=== PATIENT | female | born 1975 | race Caucasian/White ===

== ENCOUNTER 2022-04-01 06:24 | Emergency (ER) | payer MEDICAID, SELFPAY ==
[2022-04-01 06:25] VITALS: BP 131/104; PULSE 129; RESP 20; TEMP 36.9; O2SAT 99; BMI 32.5
--- NOTE | 2022-04-01 06:30 | CTR_ITS ---
PROCEDURE INFORMATION: Exam: CT Head Without Contrast Exam date and time: 04/01/2022 6:28 AM Age: 47 years old Clinical indication: Stroke-like symptoms; Additional info: Symptoms of acute stroke. Left sided facial droop, AMS, slurred speech TECHNIQUE: Imaging protocol: Computed tomography of the head without contrast. Total images: 471 Radiation optimization: All CT scans at this facility use at least one of these dose optimization techniques: automated exposure control; mA and/or kV adjustment per patient size (includes targeted exams where dose is matched to clinical indication); or iterative reconstruction. Other technique: STROKE PROTOCOL was implemented. COMPARISON: No relevant prior studies available. RADIATION DOSE METRICS: Total DLP (mGy-cm): 1900.36 FINDINGS: Brain: Normal. No hemorrhage. Unremarkable white matter. No mass effect. Cerebral ventricles: No ventriculomegaly. Paranasal sinuses: Visualized sinuses are unremarkable. No fluid levels. Mastoid air cells: Visualized mastoid air cells are well aerated. Bones/joints: Unremarkable. No acute fracture. Soft tissues: Unremarkable. CT/CT head wo con* [id number] IMPRESSION: No acute intracranial abnormality. ASSESSMENT: ASPECTS ([place] Stroke Program Early CT Score) is 10.
--- NOTE | 2022-04-01 06:31 | CTR_ITS ---
PROCEDURE INFORMATION: Exam: CTA Head With Contrast, Arteriography Exam date and time: 04/01/2022 6:34 AM Age: 47 years old Clinical indication: Stroke-like symptoms; Additional info: Symptoms of acute stroke TECHNIQUE: Imaging protocol: Computed tomographic angiography of the head with contrast. Exam focused on the arteries. 3D rendering (Not supervised by radiologist): MIP and/or 3D reconstructed images were created by the technologist. Total images: 438 Radiation optimization: All CT scans at this facility use at least one of these dose optimization techniques: automated exposure control; mA and/or kV adjustment per patient size (includes targeted exams where dose is matched to clinical indication); or iterative reconstruction. Contrast material: OMNI 350; Contrast volume: 95 ml; Contrast route: INTRAVENOUS (IV); COMPARISON: CT head wo con* [id number] 04/01/2022 6:28 AM RADIATION DOSE METRICS: Total DLP (mGy-cm): 1232.37 FINDINGS: ANTERIOR CIRCULATION: Right internal carotid artery: Unremarkable. Intracranial segment is patent with no significant stenosis. No aneurysm. Right middle cerebral artery: Unremarkable. No occlusion or significant stenosis. No aneurysm. Right anterior cerebral artery: Unremarkable. No occlusion or significant stenosis. No aneurysm. Left internal carotid artery: Unremarkable. Intracranial segment is patent with no significant stenosis. No aneurysm. Left middle cerebral artery: Unremarkable. No occlusion or significant stenosis. No aneurysm. Left anterior cerebral artery: Unremarkable. No occlusion or significant stenosis. No aneurysm. POSTERIOR CIRCULATION: Right vertebral artery: Unremarkable. No occlusion or significant stenosis. No aneurysm. Left vertebral artery: Unremarkable. No occlusion or significant stenosis. No aneurysm. Basilar artery: Occluded distal basilar artery and proximal P1 segment of right SCIENTIFIC AIDE. In hind site patient has hyperdensity in this area on prior CT scan without contrast suggesting thromboembolic disease. Right posterior cerebral artery: See Basilar artery finding. Left posterior cerebral artery: Unremarkable. No occlusion or significant stenosis. No aneurysm. Brain: No definite mass, mass effect, or midline shift. Cerebral ventricles: No ventriculomegaly. Bones/joints: Unremarkable. No acute fracture. Soft tissues: Unremarkable. PROCEDURE INFORMATION: Exam: CTA Neck With Contrast Exam date and time: 04/01/2022 6:34 AM Age: 47 years old Clinical indication: Stroke-like symptoms; Additional info: Symptoms of acute stroke TECHNIQUE: Imaging protocol: Computed tomographic angiography of the neck with contrast. 3D rendering (Not supervised by radiologist): MIP and/or 3D reconstructed images were created by the technologist. Radiation optimization: All CT scans at this facility use at least one of these dose optimization techniques: automated exposure control; mA and/or kV adjustment per patient size (includes targeted exams where dose is matched to clinical indication); or iterative reconstruction. Contrast material: OMNI 350; Contrast volume: 95 ml; Contrast route: INTRAVENOUS (IV); COMPARISON: CT head wo con* [id number] 04/01/2022 6:28 AM RADIATION DOSE METRICS: Total DLP (mGy-cm): 1232.37 FINDINGS: Right common carotid artery: No stenosis. No dissection or occlusion. Right internal carotid artery: No stenosis of the extracranial segment. No dissection or occlusion. Right external carotid artery: No occlusion or stenosis of the origin. Left common carotid artery: No stenosis. No dissection or occlusion. Left internal carotid artery: No stenosis of the extracranial segment. No dissection or occlusion. Left external carotid artery: No occlusion or stenosis of the origin. Right vertebral artery: No stenosis. No dissection or occlusion. Left vertebral artery: Findings suspicious of clot within the proximal left vertebral artery partially occluding as reconstitution of flow is seen at the C6 transverse foramina. Left vertebral artery dominant. Soft tissues: Normal. No significant soft tissue swelling. Bones/joints: No acute fracture. CT/CT angio headneck* [id number] IMPRESSION: Occluded distal basilar artery and proximal P1 segment of right SCIENTIFIC AIDE. In hind site patient has hyperdensity in this area on prior CT scan without contrast suggesting thromboembolic disease. IMPRESSION: Findings suspicious of clot within the proximal left vertebral artery partially occluding as reconstitution of flow is seen at the C6 transverse foramina. REFERENCES: NASCET CRITERIA. The degree of internal carotid artery stenosis is based on NASCET criteria. Normal is no stenosis. Mild is less than 50% stenosis. Moderate is 50-69% stenosis. Severe is 70% to 99% stenosis. Total occlusion is no detectable patent lumen.
--- NOTE | 2022-04-01 06:33 | ECG_ITS ---
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 Measurements Intervals [place] Rate: 134 P: 63 WA: 135 QRS: 64 QRSD: 89 T: 47 QT: 322 QTc: 481 Interpretive Statements SINUS TACHYCARDIA NONSPECIFIC ST & T-WAVE ABNORMALITY ABNORMAL RHYTHM ECG No previous ECG available for comparison Electronically Signed On 04-01-2022 22:19:49 CDT by Elma Leiva M.D. [id number]
[2022-04-01] MEDS: iohexol 350 mg/mL 100 mL Btl IV (06:49)
[2022-04-01] MEDS: LORazepam 2 mg/mL INJ 1 mL (06:50)
[2022-04-01 06:51] LABS: Basophils # 0.2 10^3/uL (0.0-0.1); Basophils % 0.9 %; Eosinophils # 0.5 10^3/uL (0.0-0.8); Eosinophils % 2.6 %; Hematocrit 26.6 % (37.0-47.0); Hemoglobin 7.1 g/dL (11.5-15.3); Lymphocytes # 5.4 10^3/uL (0.8-4.8); Lymphocytes % 30.2 %; Mean Corpuscular HGB Conc 26.7 g/dL (30.0-36.0); Mean Corpuscular Volume 63.8 fl (81-99); Monocytes # 0.9 10^3/uL (0.2-0.9); Monocytes % 4.8 %; Neutrophils # 10.97 10^3/uL (1.8-7.7); Neutrophils % 61.1 %; Nucleated Red Blood Cells % 0 %; Platelet Count 609 10^3/cmm (130-400); Red Blood Count 4.17 10^6/uL (4.1-5.3); Red Cell Distribution Width 20.2 % (12.1-15.1)
[2022-04-01 07:04] VITALS: RESP 14
[2022-04-01 07:05] LABS: INR 1.04 (0.8-1.2)
[2022-04-01 07:06] LABS: Partial Thromboplastin Time 22.1 SECONDS (23.9-36.7)
[2022-04-01 07:10] LABS: ABG PCO2 41.3 mmHg (35-45); Alveolar-Arterial Oxygen Gradi 46.2 mmHg (5-10); Arterial Blood Gas Hematocrit 21.9 % (37-47); Base Excess ABG -12.3 mmol/L (-2.0-2.0); Blood Gas Sample Site Brachial, left; Blood Gas Sample Type Arterial; Carboxyhemoglobin 2.1 %THgb (0.4-20.1); HCO3 ABG 15.2 mmol/L (22-26); HGB O2 Sat 97.9 % (95-100); Ionized Calcium Level - ABG 1.2 mmol/L (1.1-1.4); Methemoglobin 0.7 % (0.4-1.5); Oxygen Device AMBU; Oxygen Saturation ABG > 100.0; Potassium Level - ABG 3.8 mmol/L (3.5-5.0); Total Hemoglobin 7.2 g/dL (12-16)
[2022-04-01 07:15] LABS: ABG PH Result 7.17 (7.35-7.45)
[2022-04-01 07:15] LABS: Alanine Aminotransferase 7 U/L (0-33); Albumin Level 3.9 g/dL (3.5-5.2); Alkaline Phosphatase 87 IU/L (35-105); Aspartate Amino Transferase 14 U/L (0-32); Blood Urea Nitrogen 13 mg/dL (6-20); Chloride 104 mmol/L (98-107); Globulin 3.5 g/dL (1.3-4.6); Osmolality Calculated 285 mOsm/kg (285-295); Potassium 3.9 mmol/L (3.5-5.1); Total Bilirubin 0.3 mg/dL (0.15-1.2); Total Protein 7.4 g/dL (6.6-8.7)
[2022-04-01] MEDS: midazolam 1 mg/mL INJ 2 mL 5 MG IVP (07:15)
--- NOTE | 2022-04-01 07:16 | ED_ITS ---
HPI - Neuro Symptoms/Deficit General: Chief Complaint: Neuro Symptoms/Deficit Stated Complaint: STROKE Time Seen by Provider: 04/01/22 06:32 History of Present Illness: 47-year-old female brought in by EMS. Initially we were given a EMS report of a last known well at around 10 30-11 30 last night. In the report was that she woke up with right-sided facial weakness and arm weakness. She is having difficulty with breathing. EMS had called in with a time report initially at around change of shift and talk to Dr. Charlie Guerra told him to proceed directly to the CT for evaluation. I arrived in the CT scanner brief exam would put her NIH score at that time in the 16-20 range however she was difficult to examine because of the severity of her deficits. Patient returned to the trauma bay after she had CT head and CTA head and neck at that time she began seizing was intermittently hypoxic and was not controlling her airway. She was given Ativan and Versed and then intubated by RSI. Patient was given a gram of Keppra and started on a Versed drip supplemented with fentanyl. At that time the family arrived and gave a different history history per the family was that they had seen her at around 4 AM she gotten up going to the bathroom without any difficulty and then woke up sometime around 530 was normal was up talking to several different family members drinking coffee even joking with 1 family member and then shortly before 6:00am was found to be nonresponsive sitting on a couch with the right-sided facial weakness. They called EMS around that time. See notes below and medical decision making. Patient has no known history of diabetes or stroke. Int erestingly she has been having progressively worsening headaches for the last week. No recent surgeries or head injury per the family. No bleeding issues recently. Onset (ago): minute(s) Location: speech, right face, dysarthria, right arm, right leg, ataxia and altered History of same: No Severity: severe Quality: weak Relieving factors: none Exacerbating factors: none Context: sudden onset Associated symptoms: Reports headache(s), seizures and weakness; Deny chest pain, cough, fevers/chills, anorexia, malaise, nausea, short of breath, syncope, tingling, vertigo or vomiting (No vomiting prior to the episode this morning) Treatments Prior to Arrival: none Review of Systems General: Reports: Other (Minimal review of systems. Obtained via family discussion) Const: Denies: fever(s), chills, body aches, change in appetite, fatigue or malaise ENMT: Denies: throat pain, ear or mastoid pain, nasal discharge or nasal congestion Card: Denies: chest pain or syncope Resp: Denies: dyspnea GI: Denies: abdominal pain, nausea or vomiting (No vomiting prior to the episode this morning) : Denies: flank pain, difficulty voiding, dysuria, urinary frequency or uri nary urgency Skin/Breast: Denies: rash or pruritus Neuro: Reports: headache(s); Denies: vertigo PFSH ED PFSH: Medical History Migraines Social History Smoking and tobacco status: current every day smoker Alcohol intake: current Supplemental PFSH Information: due to endotracheal tube NIH stroke score NIHSS: Level Of Consciousness - 1a: 3 Level Of Consciousness Questions - 1b: Neither Correct Level Of Consciousness Commands - 1c: Neither Correct Best Gaze - 2: Forced Deviation Visual Perez - 3: No Visual Loss Facial Palsy - 4: Partial Paralysis Motor Arm Right - 5: No Drift Motor Arm Left - 5: No Drift Motor Leg Right - 6: No Drift Motor Leg Left - 6: No Drift Limb Ataxia - 7: Absent Sensory - 8: Normal Best Language - 9: Mild/Moderate Aphasia Dysarthia - 10: Severe Dysarthia Extinction And Inattention - 11: 2 Score: Total Score: 16 Physical Exam HENMT: COMMON NORMALS: normocephalic and atraumatic HEAD & SCALP: n ormocephalic and atraumatic Neck/C-Spine: COMMON NORMALS: full ROM, no lymphadenopathy, supple and no JVD Resp: COMMON NORMALS: normal respiratory effort, No retractions, No use of accessory muscles and clear to auscultation bilaterally AUSCULTATION: clear to auscultation bilaterally Cardio: COMMON NORMALS: no JVD, regular rhythm and No murmurs present (Cardio) RATE: tachycardic RHYTHM: regular rhythm GI: COMMON NORMALS: Soft to palpation and No hepatosplenomegaly present AUSCULTATION: Yes normoactive bowel sounds PALPATION: Yes Soft to palpation, No Tenderness to palpation present (GI), No Guarding due to palpation present (GI) and Yes No hepatosplenomegaly present Extremity: COMMON NORMALS: normal to inspection, capillary refill normal, no clubbing, cyanosis or edema, no calf tenderness and no pedal edema Neuro: OTHER: Witnessed seizure activity see stroke score Skin: COMMON NORMALS: no rashes or lesions noted GENERAL SKIN EXAM: no rashes or lesions noted Procedures Intubation Time out performed: Yes sedative: Etomidate paralytic: Succinylcholine Laryngoscope: fiber optic video scope Assist Device Used: fiber optic device ET Tube Size: 8 ET Tube Uncuffed: No Tube Secured Depth (cm): 21 Tube Placement Confirmation: visualized tube passing through cords, equal breath sounds bilaterally, no breath sounds over epigastrium and confirmation by cap nometry Patient Tolerated Procedure: well Intubation Complications: none Additional Comments: Initial RSI medications I believe infiltrated in the IV that was being used in the left shoulder as she had very poor response to them. She was redosed with succinylcholine and Versed in the right IV and had quick response. She was then successfully intubated without any complications. Course Vital Signs: Vital signs: Vital Signs Temperature 98.5 F 04/01/22 06:25 Pulse Rate 129 H 04/01/22 06:25 Respiratory Rate 14 04/01/22 07:04 Blood Pressure 131/104 04/01/22 06:25 Pulse Oximetry 99 04/01/22 06:25 MDM - Neuro Symptoms/Deficit Medical Decision Making After family arrived I was found by history that they could confirm a much closer last known well time she was well within the time for treatment. We immediately consented for tPA which they agreed to after some discussion with several family members all questions that they asked were answered they wish to go ahead. I also called and talked to Dr. Hines I talked to her earlier and when we were unaware of the actual last known well time and we had decided that she was not a tPA candidate. Given this new information placed her last known well around 545 she was a candidate now. I think she would definitely benefit family consented tPA was started. She is also found to be significantly anemic with a hemoglobin of 7 1 her MCV was 63.8 in talking to the family is no recent history suggestive of a new bleed. They had also told me she had not had any traumas or surgeries recently. We Ar[place] to transfuse her 1 unit of blood. She is transferred via air ambulance to [facility] for possible thrombectomy. tPA has infused blood is being started she has not shown any signs of seizure since being intubated she is on Versed and fentanyl for sedation and she has received Keppra. Dr. Hines did come to the emergency room and see the patient and talk to the family as well she concurs with our treatment plan to this point. Medical Records I reviewed the patient's medical records. Lab Data I reviewed the patient's lab results. : 04/01/22 06:40 04/01/22 06:[address] 04/01/22 06:30 IMPRESSION: No acute intracranial abnormality. ASSESSMENT: ASPECTS ([place] Stroke Program Early CT Score) is 10. ADDENDUM: 04/01/22 0703 On further review, there is hyperdense distal basilar and P1 segment of right TURF MANAGER worrisome for clot/thromboembolic disease. Head/Neck CTA 04/01/22 06:31 IMPRESSION: Occluded distal basilar artery and proximal P1 segment of right TURF MANAGER. In hind site patient has hyperdensity in this area on prior CT scan without contrast suggesting thromboembolic disease. IMPRESSION: Findings suspicious of clot within the proximal left vertebral artery partially occluding as reconstitution of flow is seen at the C6 transverse foramina. REFERENCES: NASCET CRITERIA. The degree of internal carotid artery stenosis is based on NASCET criteria. Normal is no stenosis. Mild is less than 50% stenosis. Moderate is 50-69% stenosis. Severe is 70% to 99% stenosis. Total occlusion is no detectable patent lumen. ADDENDUM: 04/01/22 0720 THIS REPORT CONTAINS FINDINGS THAT MAY BE CRITICAL TO PATIENT CARE. VITO NG relayed via telephone conversation with the virtual radiologic operations center at 7:18 AM CDT on 04/01/2022 that the report had been received, the critical findings acknowledged and understood and that a conference call with the reporting radiologist was unnecessary. Chest X-Ray 04/01/22 08:00 IMPRESSION: 1. An endotracheal tube is present, terminating above the huber by 6 cm. 2. Enteric tube is seen with the tip in the body of the stomach. 3. Nonspecific left lung base opacity favors atelectasis or pneumonia. Laboratory Results WBC 18.0 10^3/uL (4.0-10.0) H 04/01/22 06:40 RBC 4.17 10^6/uL (4.1-5.3) 04/01/22 06:40 Hgb 7.1 g/dL (11.5-15.3) L 04/01/22 06:40 Hct 26.6 % (37.0-47.0) L 04/01/22 06:40 MCV 63.8 fl (81-99) L 04/01/22 06:40 MCH 17.0 pg (28.0-34.0) L 04/01/22 06:40 MCHC 26.7 g/dL (30.0-36.0) L 04/01/22 06:40 RDW 20.2 % (12.1-15.1) H 04/01/22 06:40 Plt Count 609 10^3/cmm (130-400) H 04/01/22 06:40 MPV 10.0 fL (7.4-10.4) 04/01/22 06:40 Neut % (Auto) 61.1 % 04/01/22 06:40 Lymph % (Auto) 30.2 % 04/01/22 06:40 [place] % (Auto) 4.8 % 04/01/22 06:40 Eos % (Auto) 2.6 % 04/01/22 06:40 Baso % (Auto) 0.9 % 04/01/22 06:40 Neut # (Auto) 10.97 10^3/uL (1.8-7.7) H 04/01/22 06:40 Lymph # (Auto) 5.4 10^3/uL (0.8-4.8) H 04/01/22 06:40 [place] # (Auto) 0.9 10^3/uL (0.2-0.9) 04/01/22 06:40 Eos # (Auto) 0.5 10^3/uL (0.0-0.8) 04/01/22 06:40 Baso # (Auto) 0.2 10^3/uL (0.0-0.1) H 04/01/22 06:40 Nucleated RBC % (auto) 0 % 04/01/22 06:40 Nucleated RBCs # 0.0 /100WBC 04/01/22 06:40 PT 13.90 SECONDS (12.1-14.9) 04/01/22 06:40 INR 1.04 (0.8-1.2) 04/01/22 06:40 APTT 22.1 SECONDS (23.9-36.7) L 04/01/22 06:40 Specimen Type Arterial 04/01/22 06:58 Sample Site Brachial, left 04/01/22 06:58 ABG pH 7.17 (7.35-7.45) L* 04/01/22 06:58 ABG pCO2 41.3 mmHg (35-45) 04/01/22 06:58 ABG pO2 299.0 mmHg (80.0-100.0) H 04/01/22 06:58 ABG HCO3 15.2 mmol/L (22-26) L 04/01/22 06:58 ABG O2 Saturation > 100.0 04/01/22 06:58 ABG Base Excess -12.3 mmol/L (-2.0-2.0) L 04/01/22 06:58 Edward Test N/a 04/01/22 06:58 A-a O2 Gradient 46.2 mmHg (5-10) H 04/01/22 06:58 Hematocrit 21.9 % (37-47) L 04/01/22 06:58 Hgb O2 Saturation 97.9 % (95-100) 04/01/22 06:58 Carboxyhemoglobin 2.1 %THgb (0.4-20.1) 04/01/22 06:58 Methemoglobin 0.7 % (0.4-1.5) 04/01/22 06:58 Total Hemoglobin 7.2 g/dL (12-16) L 04/01/22 06:58 Sodium 138.0 mmol/L (131-143) 04/01/22 06:58 Potassium 3.8 mmol/L (3.5-5.0) 04/01/22 06:58 Glucose 153.0 mg/dL (70-115) H 04/01/22 06:58 Ionized Calcium 1.2 mmol/L (1.1-1.4) 04/01/22 06:58 O2 Delivery Device Ambu 04/01/22 06:58 FiO2 100.0 % 04/01/22 06:58 Dental Receptionist ID Margotha 04/01/22 06:58 Sodium 135 mmol/L (136-145) L 04/01/22 06:40 Potassium 3.9 mmol/L (3.5-5.1) 04/01/22 06:40 Chloride 104 mmol/L (98-107) 04/01/22 06:40 Carbon Dioxide 13 mmol/L (22-29) L 04/01/22 06:40 Anion Gap 21.9 (5-19) H 04/01/22 06:40 BUN 13 mg/dL (6-20) 04/01/22 06:40 Creatinine 0.8 mg/dL (0.5-0.9) 04/01/22 06:40 GFR Calculation Not Reportable 04/01/22 06:40 Glucose 188 mg/dL (65-115) H 04/01/22 06:40 Calculated Osmolality 285 mOsm/kg (285-295) 04/01/22 06:40 Calcium 8.9 mg/dL (8.5-10.5) 04/01/22 06:40 Total Bilirubin 0.3 mg/dL (0.15-1.2) 04/01/22 06:40 AST 14 U/L (0-32) 04/01/22 06:40 ALT 7 U/L (0-33) 04/01/22 06:40 Alkaline Phosphatase 87 IU/L (35-105) 04/01/22 06:40 Creatine Kinase 39 U/L (26-192) 04/01/22 06:40 Total Protein 7.4 g/dL (6.6-8.7) 04/01/22 06:40 Albumin 3.9 g/dL (3.5-5.2) 04/01/22 06:40 Globulin 3.5 g/dL (1.3-4.6) 04/01/22 06:40 Blood Type A Negative 04/01/22 08:24 Rho(D) Type Negative 04/01/22 08:24 Antibody Screen Negative 04/01/22 08:24 Crossmatch See Detail 04/01/22 08:24 Critical Care Time Critical Care Time: Critical Care Time: Yes Total Critical Care Time: 60 Attestation: The high probability of a clinically significant, sudden or life threatening deterioration of the patient's neurologic respiratory system(s) required my full and direct attention, intervention and personal management. The critical care time is as shown. This time is in addition to time spent performing any reported procedures but includes the following: [x] Data and vital sign review and interpretation [x] Patient assessment, examination and intervention [x] Documentation [x] Medication orders and management Discharge Plan Discharge Patient Disposition: Transfer to ED Clinical Impression: Basilar artery embolus, Migraines, Cerebrovascular accident, Seizures, Acute respiratory failure Condition: Stable Discharge Diet: Usual diet Discharge Activity: Resume usual activity Coding Level of Care Code ED Screening Technician for Francisco Garcia Exam Detailed
[2022-04-01 07:53] LABS: Slide Review Slide Review Perform
[2022-04-01 07:55] LABS: Calcium 8.9 mg/dL (8.5-10.5)
[2022-04-01 07:59] LABS: Creatine Phosphokinase 39 U/L (26-192)
[2022-04-01 08:00] LABS: Sodium 135 mmol/L (136-145)
--- NOTE | 2022-04-01 08:00 | XRR_ITS ---
PROCEDURE INFORMATION: Exam: XR Chest Exam date and time: 04/01/2022 7:38 AM Age: 47 years old Clinical indication: Device placement; Other: Tube placement TECHNIQUE: Imaging protocol: Radiologic exam of the chest. Views: 1 view. Total images: 577 COMPARISON: CR Chest 1 [place] [id number] 12/10/2016 10:53 AM FINDINGS: Tubes, catheters and devices: An endotracheal tube is present, terminating above the huber by 6 cm. Enteric tube is seen with the tip in the body of the stomach. Lungs: Nonspecific left lung base opacity favors atelectasis or pneumonia. Pleural spaces: Unremarkable. No pleural effusion. No pneumothorax. Heart/Mediastinum: Unremarkable. No cardiomegaly. Bones/joints: Unremarkable. XR/XR chest 1V portable [id number] IMPRESSION: 1. An endotracheal tube is present, terminating above the huber by 6 cm. 2. Enteric tube is seen with the tip in the body of the stomach. 3. Nonspecific left lung base opacity favors atelectasis or pneumonia.
[2022-04-01 08:01] LABS: Anion Gap 21.9 (5-19); Carbon Dioxide 13 mmol/L (22-29); Glucose 188 mg/dL (65-115)
--- NOTE | 2022-04-01 08:38 | PM.SAN ---
Stroke Alert Activation ED Arrival Date: 04/01/22 ED Arrival Time: 06:30 Last Known Normal/at Baseline: < 1 hour ago Other Last Known Well Infomation: The patient was brought by [facility] and the story was that she was last known normal at 7:30 PM last evening. She arrived here at 630. Dr. Ng called me because the patient was having multiple generalized tonic-clonic seizures and because CT angiogram showed multiple posterior circulation occlusion as described below. We agreed that she should receive a gram of Keppra and that she was outside of the window for tPA. He called me at 730. He called me back while I was in route to the hospital and informed me that the patient's arrived and revealed that her last known well was at 545 this morning. We agreed that she should receive tPA. I also asked him to give her a liter of normal saline and be sure she was laying flat. She had already been intubated to protect her airway soon after arrival. I came to the emergency department and reviewed the story again with Dr. Ng. By this time tPA was nearly completed. Her labs have returned including hemoglobin of 7.1. Her did not go to bed. He has not been to bed for more than 24 hours so he was up when she got out of bed sometime around 515 or 530. She sat down in her chair and was playing on her phone. Her son was nearby when she suddenly had trunk extension and developed tonic-clonic movements and it was at that point that EMS was activated. On arrival here she had profound hemiparesis, completely obtunded, and her total NIH stroke scale score was 16. I did not witness her examination which was performed by Dr. Ng just before he intubated her for airway protection (her arterial blood gas pH was 7.16). Stroke Alert Activated by: Dr. Ng Stroke Alert Activation Time: 07:06 Stroke MD @ Bedside Time: 07:06 NIH Stroke Scale Score: NIH Stroke Scale Score: 16 (Performed by Dr. Ng prior to intubation) Stroke Alert Data/Treatment CT Impression: CT angiogram shows multiple regions of thrombosis, primarily upper basilar artery and right posterior cerebral artery and tip of the basilar. Also possibly right vertebral at its origin. Stroke Risk Factors: hypertension and obesity Other Patient & Family Education: I talked with the patient's . He witnessed the onset of her symptoms and we confirmed that she was normal at 545 and abnormal at 06 100. She has not been to the doctor for ever. She was severely hypertensive on arrival. She is now paralyzed and intubated. We agreed that she should be transferred to [place] for potential embolectomy or selective tPA depending on their protocol. She was given high flow normal saline and kept flat. tPA was completed. She will get a unit of blood on the way to [place]. As this is being dictated she is in the helicopter on her way. 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 She has received tPA. She is anemic and cause of her anemia is unknown but it appears to be chronic. She will get a unit of blood on her way [place]. She received a gram of Keppra for seizure activity. Status: Acute Coding Level of Care Code Acute Scrub Technician for Francisco Garcia Diagnoses Basilar artery embolus I65.1
--- NOTE | 2022-04-01 08:43 | PC.NURSE ---
Changed to air ambulance vent, TPA complete,
[2022-04-01] MEDS: sodium chloride 0.9% 1,000 ML 999 ML IV (08:46)
== END 2022-04-01 08:50 ==
PROVIDERS: Emergency Provider Family Medicine
DX: I63.12 Cerebral infarction due to embolism of basilar artery (principal); R29.716 NIHSS score 16; J96.01 Acute respiratory failure with hypoxia; G81.91 Hemiplegia, unspecified affecting right dominant side; R56.9 Unspecified convulsions; R47.1 Dysarthria and anarthria; R27.0 Ataxia, unspecified; R51.9 Headache, unspecified; F17.200 Nicotine dependence, unspecified, uncomplicated
CPT/HCPCS: 31500; 36600; 51702; 70450; 70496; 70498; 71045; 80051; 80053; 82330; 82550; 82805; 85025; 85610; 85730; 86850; 86900; 86920; 87070; 87205; 93005; 94002; 94799; 96365; 96375; 99291; J1953; J2060; J2250; J2997; J7030; P9016; Q9967